=== PATIENT | female | born 1990 | race Caucasian/White ===

== ENCOUNTER 2022-02-23 10:46 | Day surgery (SDC) | payer BC ==
[2022-02-23] MEDS ORDERED: BUPIVACAINE 0.25% PF 10 ML VIAL ONE (11:01)
[2022-02-23] MEDS ORDERED: LIDOCAINE 1% 20 ML MDV ONE (11:02)
[2022-02-23] MEDS ORDERED: TRIAMCINOLONE ACETON 40 MG/ML VIAL ONE (11:02)
[2022-02-23] MEDS ORDERED: Ringers Lactate 1,000 ML IV ONE (11:11)
[2022-02-23] MEDS ORDERED: propofoL 200 MG/20 ML VIAL IV ONE (11:47)
[2022-02-23] MEDS ORDERED: LIDOCAINE 2% MPF 5 ML VIAL ONE (11:48)
[2022-02-23 14:15] VITALS: TEMP 97.6; O2SAT 100
[2022-02-23 14:17] VITALS: BP 107/61
--- NOTE | 2022-02-23 14:54 | RAD REPORT ---
EXAM DESCRIPTION: RAD - Fluoroscopy <1 Hour - 02/23/2022 2:42 pm CLINICAL HISTORY: Device placement sacroiliac injection FINDINGS: [place] placed into the sacroiliac joint for pain injection The examination was performed by Dr. Cornejo One fluoroscopic spot images obtained. Fluoroscopy time 0.2 minutes
== END 2022-02-23 13:30 | disposition home or self-care (01) ==
LOC: OR 10:46
PROVIDERS: ATTEND Pain Medicine Interventional Pain Medicine
PROC: B01BZZZ Fluoroscopy of Spinal Cord (ICD-10-PCS; 2022-02-23)
PROC: 3E0U33Z Introduction of Anti-inflammatory into Joints, Percutaneous Approach (ICD-10-PCS; principal; 2022-02-23 12:15)
DX: M46.1 Sacroiliitis, not elsewhere classified (principal); M76.30 Iliotibial band syndrome, unspecified leg; M70.61 Trochanteric bursitis, right hip; M54.16 Radiculopathy, lumbar region; M60.9 Myositis, unspecified; G89.4 Chronic pain syndrome
CPT/HCPCS: 81025; 76000; 27096; J2704; J3301; J2001; J7120; Q9967

== ENCOUNTER 2022-05-14 12:08 | Emergency (ER) | payer BC ==
--- OUTSIDE RECORDS SUMMARY | 2022-05-14 12:12 | XMS REPORT | Continuity of Care Document ---
:1990 Author Organization [facility] t Address [address] [place] [address] [address] [place] [address] Care Team Providers Name Role Phone Lori Galan Primary Care Physician DREW QUICK Attending Clinician Unavailable DEANDRE OROPEZA Attending Clinician Unavailable Lab, Ang - Db Attending Clinician Unavailable Lori Galan Attending Clinician LORI ALMARAZ Attending Clinician Unavailable Doctor Unassigned, [place] Attending Clinician Unavailable LAB90 Attending Clinician Unavailable Hayley Rivero Attending Clinician Unavailable CHANDAN RIVERS Attending Clinician Unavailable Physician, No Primary or Family Admitting Clinician Unavaila ble Payers Payer Name Policy Type Policy Number Effective Date Expiration Date Magdiel cardenas BC 2 [id number] 2022 00:00:00 Problems Condition Condition Condition Status Onset Resolution Last Treating Co mments Source Name Details Category Date Date Treatment Clinician Date Seasonal Seasonal Disease Active 2022- Kelse y allergic allergic 2-10 Seybol d rhinitis rhinitis 00:00: - due to due to 00 Externa pollen pollen l 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:00: - major major 00 Externa depressive depressive l disorder disorder without without prior prior episode episode Vitamin D Vitamin D Disease Active 2021-03 Amandeep jiang deficiency deficiency 2-16 Se ybold 00:00: - 00 Externa l Chronic Chronic Disease Active 2021-03 Indira bilateral bilateral 2-16 Seyb old low back low back 00:00: - pain pain 00 Externa without without l sciatica sciatica Prediabete Prediabete Disease Active 2021-03 Jake kahn s s 2-16 Seybold 00:00: - 00 Externa l Class 1 Class 1 Disease Active 2021-03 Indira obesity obesity 2-16 Seybold due to due to 00:00: - excess excess 00 Externa calories calories l without without serious serious comorbidit comorbidit y with y with body mass body mass index index (BMI) of (BMI) of 34.0 to 34.0 to 34.9 in 34.9 in adult adult PCOS PCOS Disease Active 2021-03 Indira (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 Se ybold 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:00: - syndrome) syndrome) 00 Exte rna l 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 Jake elsey disorder disorder 2-16 Seybol d with with 00:00: - depressed depressed 00 Exte rna mood mood l No known No known Disease Unive rs active active ity of problems problems [facility] Allergies, Adverse Reactions, Alerts Allergy Allergy Status Severity Reaction(s) Onset Inactive Treating Comm ents Source Name Type Date Date Clinician No Known DA Active [facility] Allergie 7-26 Clear s 00:00: Vasquez 00 [facility] No Known DA Active [facility] Allergie 7-26 Clear s 00:00: Vasquez 00 [facility] NO KNOWN Drug Active Univers ALLERGIE Class ity of S [facility] Family History Family Member Diagnosis Comments Start Date Stop Date Source Natural father Stroke [facility] Social History Social Habit Start Date Stop Date Quantity Comments Source History SDOH Indira Avalos ld - Alcohol Frequency Externa l History SDOH Indira Avalos ld - Alcohol Std Drinks [place]ose Hunter al History SDOH Indira Avalos ld - Alcohol Binge External History of tobacco Cigarette Smoker [facility] of use [facility] Exposure to 2022-03-08 2022-03-18 Not sure University SARS-CoV-2 (event) 00:00:00 12:55:00 [facility] Tobacco use and 2022-03-18 2022-03-18 Smokeless Universit y of exposure 00:00:00 00:00:00 tobacco non-user [facility] Alcohol Comment 2022-03-18 2022-03-18 social Universit y of 00:00:00 00:00:00 [facility] Education 2022-02-18 2022-02-18 18 Indira Gilliam - 00:00:00 00:00:00 External Alcohol intake 2020 2020 .57 /d [facility] Cigarettes smoked 2020-01-10 2020-01-[address] current (pack per 00:00:00 00:00:00 Hospita l day) - Reported Cigarette 2020-01-10 2020-01-10 [facility] pack-years 00:00:00 00:00:00 Hospital Sex Assigned At [birth year] Universit [facility] of 00:00:00 00:00:00 [facility] Smoking Status Start Date Stop Date Source Tobacco smoking [facility] consumption unknown [facility] Smokes tobacco daily 2022-02-18 00:00:00 Indira Gilliam - External Ex-smoker 2020-01-10 00:00:00 2020-01-10 [facility] 00:[facility]:00 Medications Ordered Filled Start Stop Current Ordering Indication Dosage Frequency Signature Comments Components Source Medication Medication Date Date Medication? Clinician (SIG) Name Name Cholecalcif Yes Indira cristiano 125 1-13 Seybold MCG (5000 15:05: - [place]) oral 53 Externa Tablet l Diclofenac 0 Yes 50mg Take 50 mg K elsey Sodium 50 1-13 by mouth 3 Seyb old MG oral 15:05: times - Tablet 53 daily Externa Delayed (with l Response meals) Cholecalcif 0 Yes Indira cristiano 125 1-13 Seybold MCG (5000 15:05: - [place]) oral 53 Externa Tablet l Diclofenac Yes 50mg Take 50 mg K elsey Sodium 50 1-13 by mouth 3 Seyb old MG oral 15:05: times - Tablet 53 daily Externa Delayed (with l Response meals) diclofenac 3-0 Yes 50mg Take 50 mg U nivers 50 mg EC 1-13 by mouth ity of tablet 13:20: in the [place] [address] morning Medical and 50 mg Branch at noon and 50 mg in the evening. Take with meals. diclofenac 2022-0 Yes 50mg Take 50 mg U nivers 50 mg EC 1-13 by mouth ity of tablet 13:20: in the [place] [address] morning Medical and 50 mg Branch at noon and 50 mg in the evening. Take with meals. diclofenac 2022-0 Yes 50mg Take 50 mg U nivers 50 mg EC 1-13 by mouth ity of tablet 13:20: in the [place] [address] morning Medical and 50 mg Branch at noon and 50 mg in the evening. Take with meals. diclofenac 2022-0 Yes 50mg Take 50 mg U nivers 50 mg EC 1-13 by mouth ity of tablet 13:20: in the [place] [address] morning Medical and 50 mg Branch at noon and 50 mg in the evening. Take with meals. Sertraline 0 Yes [id number] 25mg Take 1 K elsey HCl 25 MG 1-13 tablet (25 Seyb old oral Tablet 00:00: mg total) - 00 by mouth Externa daily l Sertraline 2022-0 Yes [id number] 25mg Take 1 K elsey HCl 25 MG 1-13 tablet (25 Seyb old oral Tablet 00:00: mg total) - 00 by mouth Externa daily l Cholecalcif 2021-03 Yes Indira cristiano 125 2-16 Seybold MCG (5000 15:09: - [place]) oral 29 Externa Tablet l metFORMIN 2019-03 Yes 500mg Q.5D Take 500 [facility] (GLUCOPHAGE 2-[address] ) 500 mg 15:38: mouth 2 Hospit a tablet 53 (two) l times a day with meals. thyroid, 2019-03 Yes 60mg QD Take 60 mg [facility] pork, -[address] (ARMOUR 15:38: daily. Hospita THYROID) 60 53 l mg tablet cholecalcif 2019-03 Yes Method i cristiano, 04-06 st vitamin D3, 15:38: Hospit a 125 mcg 53 l (5,000 unit) tablet norethindro 2019-03 Yes Method i ne-e.estrad 2- st ioL-iron 15:38: Hospita (JUNEL FE 53 l 03/25) 1 mg-20 mcg (21)/75 mg (7) per tablet progesteron Yes Method i e 11-24 st (PROMETRIUM 00:00: Hospit a ) 100 MG 00 l capsule Immunizations Ordered Immunization Filled Immunization Date Status Commen ts Source Name Name Influenza Virus 2022-02-18 Completed Indira Se ybold Vaccine, age 6 months 00:00:00 - E xternal and up Pneumococcal Vaccine, 2022-02-18 Completed Amandeep georgey Seybold Polysaccharide 00:00:00 - External Influenza Virus 2022-02-18 Completed Indira Se ybold Vaccine, age 6 months 00:00:00 - E xternal and up Pneumococcal Vaccine, 2022-02-18 Completed Amandeep georgey Seybold Polysaccharide 00:00:00 - External Influenza Virus 2022-02-18 Completed Indira George ybold Vaccine, age 6 months 00:00:00 - E xternal and up Pneumococcal Vaccine, 2022-02-18 Completed Amandeep sey Seybold Polysaccharide 00:00:00 - External Vital Signs Vital Name Observation Time Observation Value Comments Source Systolic blood 2022-04-15 20:59:00 102 mm[Hg] Indira Georgeybold - pressure External Diastolic blood 2022-04-15 20:59:00 70 mm[Hg] Jose Gilliam - pressure External Heart rate 2022-04-15 20:59:00 83 /min Indira farr - External Body temperature 2022-04-15 20:59:00 36.67 Cortney Emily lincoln Seybold - External Respiratory rate 2022-04-15 20:59:00 20 /min Emily lincoln Seybold - External Body height 2022-04-15 20:59:00 165.1 cm Indira farr - External Oxygen saturation in 2022-04-15 20:59:00 98 /min Indira Gilliam - Arterial blood by External Pulse oximetry Oxygen saturation in 2022-03-18 21:05:00 99 /min Indira Gilliam - Arterial blood by External Pulse oximetry Systolic blood 2022-03-18 21:05:00 110 mm[Hg] Indira Georgeybold - pressure External Diastolic blood 2022-03-18 21:05:00 73 mm[Hg] Jose rashid Seybold - pressure External Heart rate 2022-03-18 21:05:00 77 /min Indira Veloz eybold - External Body temperature 2022-03-18 21:05:00 36.56 Cortney Emily ey Seybold - External Respiratory rate 2022-03-18 21:05:00 14 /min Emily lincoln Seybold - External Body height 2022-03-18 21:05:00 165.1 cm Indira lincolnbold - External Body weight 2022-03-18 21:05:00 95.709 kg Indira Veloz eybold - External BMI 2022-03-18 21:05:00 35.11 kg/m2 Indira ilncolnbold - External Systolic blood 2022-03-18 19:17:00 123 mm[Hg] Univer sity of pressure [facility] Diastolic blood 2022-03-18 19:17:00 81 mm[Hg] Unive rsity of pressure [facility] Heart rate 2022-03-18 19:17:00 73 /min [facility] Body temperature 2022-03-18 19:17:00 37.39 Cortney Univ ers[facility] of [facility] Body height 2022-03-18 19:17:00 165.1 cm [facility] Body weight 2022-03-18 19:17:00 92.987 kg [facility] BMI 2022-03-18 19:17:00 34.11 kg/m2 [facility] Oxygen saturation in 2022-03-18 19:17:00 100 /min [facility] Arterial blood by [facility] Pulse oximetry Branch Systolic blood 2022-02-18 20:57:00 108 mm[Hg] Indira Georgeybold - pressure External Diastolic blood 2022-02-18 20:57:00 70 mm[Hg] Jose rashid Seybold - pressure External Heart rate 2022-02-18 20:57:00 73 /min Indira Veloz eybold - External Body temperature 2022-02-18 20:57:00 36.67 Cortney Emily lincoln Seybold - External Respiratory rate 2022-02-18 20:57:00 14 /min Emily Gilliam - External Body height 2022-02-18 20:57:00 165.1 cm Indira Veloz eybogiovanni - External Body weight 2022-02-18 20:57:00 93.895 kg Indira lincolnbold - External BMI 2022-02-18 20:57:00 34.45 kg/m2 Indira farr - External Procedures Procedure Date / Time Performing Clinician Source Performed FREE T4 2022-03-18 20:12:00 Lori Almaraz [facility] THYROID STIMULATING 2022-03-18 20:12:00 Lori Almaraz [facility] FREE T3 2022-03-18 20:12:00 Lori Almaraz [facility] ASSIGNMENT OF BENEFITS 2022-03-18 18:56:14 Doctor Unassigned, No [facility] Plan of Care Planned Activity Planned Date Details Comments Source Future Scheduled 2022-02-20 COVID-19 VACCINE [facility] Test 13:59:16 (#1) [code = COVID-19 VACCINE (#1)] Future Scheduled 2022-02-20 Hepatitis C [facility] 13:59:16 screening (procedure) [code = 561934135] Future Scheduled 2022-02-20 [facility] Test 13:59:16 malignant neoplasm of cervix (procedure) [code = 311215135] Future Scheduled 2022-02-20 [facility]ENZA [facility]ACCINE [facility] Test 13:59:16 [code = INFLUENZA VACCINE] Encounters Start End Encounter Admission Attending Care Care Encounter Source Date/Time Date/Time Type Type Clinicians Facility Department ID 2022-07-15 2022-07-15 Outpatient INDIRA QUICK [id number] Indira 15:30:00 15:30:00 DREW Seybol d 2022-05-27 2022-05-27 Outpatient DEANDRE OROPEZA [id number] Indira 08:30:00 08:30:00 Seybol d 2022-04-15 2022-04-15 Outpatient INDIRA QUICK [id number] Indira 15:15:00 15:15:00 DREW Seybol d 2022-03-18 2022-03-18 Mechanic Chief Lab, Ang - Db [facility] 1.2.840.1 [id number] Univers 14:15:00 15:19:45 Visit Rufina Lori [facility] 350.1.13.10 ity of [place] 4.2.7.2.686 George as BRITTNEY?BLEA [id number] Ak massiel FRAZIER [address] MEDICAL OFFICE [facility] 2022-03-18 2022-03-18 Outpatient PREINDIRA ALLEN [id number] Indira 15:15:00 15:15:00 DREW Seybol d 2022-03-18 2022-03-18 Outpatient R RUFINA [facility] [id number] Univers 13:30:00 14:07:07 LORI ity [facility] 2022-03-18 2022-03-18 Office Rufina, [facility] [id number] Univers 13:30:00 14:07:07 Visit Lori Abdirashid HEALTH 350.1.13.10 i ty of [place] 4.2.7.2.686 George as BRITTNEY?BLEA [id number] Ak massiel [address] OFFICE [facility] 2022-03-18 2022-03-18 Orders Doctor AUBRIE 1.2.840.114 [id number] Univers 00:00:00 00:00:00 Only Unassigned, MARIKA 350.1.13.10 ity of [place] [facility] 4.2.7.2.686 George as [id number] [address] 2022-02-23 2022-02-23 Outpatient PREZAINDIRA Veloz [id number] Indira 00:00:00 00:00:00 DREW Seybol d 2022-02-18 2022-02-18 Outpatient LAB90 INDIRA MEDINA [id number] Indira 16:00:00 16:00:00 Seybol d 2022-02-18 2022-02-18 Outpatient PREINDIRA ALLEN [id number] Indira 15:15:00 15:15:00 DREW Seybol d 2022-02-18 2022-02-18 Outpatient INDIRA QUICK [id number] Indira 15:15:00 15:15:00 DREW lee 2020-12-04 2020-12-04 Outpatient PRIV PRIV [id number] [facility] 00:00:00 00:00:00 [id number] Medica l 2020-09-29 2020-09-29 Outpatient Josefa, HCACL LABO [id number] [facility] 00:25:00 00:25:00 Hayley 22 [facility] 2020-09-28 2020-09-28 Emergency EM Josefa, HCAMN LOGAN [id number] [facility] 01:22:00 04:48:00 Hayley 53 [facility] 2020 2020 Outpatient RIVERS, [facility] [id number] [place] 00:00:00 00:00:00 CHANDAN [address] 2020-01-16 2020-01-16 Outpatient RIVERS, [facility] [id number] [place] 00:00:00 00:00:00 CHANDAN [address] 2020-01-10 2020-01-10 Outpatient RIVERS, [facility] [id number] [place] 00:00:00 00:00:00 CHANDAN [address] 2020-01-10 2020-01-10 Outpatient RIVERS, [facility] [id number] [place] 00:00:00 00:00:00 CHANDAN [address] Results Test Description Test Time Test Comments Results Result Comments Source THYROID STIMULATING HORMONE 2022-03-18 23:23:56 Test Item Value Reference Range Interpretation Comme nts TSH (test code = 9752000455) See_Comment [Automated message] The system which generated this result transmitted ref erence range: 0.45 - 4.70 mIU/L. T he reference range was not used to interpret this result as stefani l/abnormal. Lab Interpretation (test code = Normal 16715-2) [facility] [id number] 23:10:55 Test Item Value Reference Range Interpretation Comments FREE T4 (test code = See_Comment [Autom ated message] [id number]) The system ic h generated this result transmitted ref erence range: 0.78 - 2 .20 ng/dL:. The ref erence range was not u sed to interpret this result as normal/abnor mal. Lab Interpretation (test Normal code = 21111-7) [facility] [id number] 23:10:13 Test Item Value Reference Range Interpretation Comments FREE T3 (test code = 3098902412) 3.14 pg/mL 2.77-5.27 Lab Interpretation (test code = Normal 84827-2) [facility]- CT ABD PELVIS [id number] 03:39:00 [facility] : 1990 Sex: F FAX: Hayley Miles MD [place]: St: REG Name: ANGIE FERRARI [facility] : 1990 Age/S: 30/F [address] [facility] Unit: [id number] Loc: [address] Phys: [place] [id number] Acct: [id number] Dis Date: Status: REG ER PHONE #: [phone] Exam Date: 09/28/2020253 FAX #: [phone] Reason: ABD PAIN EXAMS: CPT CODE: [id number] CT ABD PELVIS W/CONT 61257 EXAM: - CT ABD PELVIS W/CONT HISTORY: Abdominal pain. TECHNIQUE: Axial tomograms through the abdomen and pelvis were obtained after intravenous contrast. Coronal and sagittal reformatted images are provided. This exam was performed according to our departmental dose-optimization program, which includes automated exposure control, adjustment of the mA and/or kV according to patient size and/or use of iterative reconstruction technique. COMPARISON: None available time of interpretation. FINDINGS: The visualized lung bases are clear. There is a 3 cm enhancing lesion in left lobe of the liver. This could represent a hemangioma. The spleen, pancreas, adrenal glands and kidneys demonstrate no significant abnormalities. The appendix is minimally prominent in size measuring 8 mm in diameter. There is no evidence of acute inflammation. This could be a normal variant. The bowel is not distended. There is minimal fluid throughout the small bowel. There is no adenopathy or free fluid. There is no acute osseous abnormality. IMPRESSION: A 3cm enhancing lesion in left lobe of the liver. This could represent a hemangioma. Limited exam. Nonemergent evaluation with hepatic protocol is recommended for further characterization. The appendix is minimally prominent in size. PAGE 1 Signed Report (CONTINUED) FAX: Hayley Miles MD [place]: St: REG -- Name: ANGIE FERRARI [facility] : 1990 Age/S: 30/F [address] [facility] Unit: [id number] Loc: [address] Phys: [place] [address] Acct: [id number] Dis Date: Status: REG ER PHONE#: [phone] Exam Date: 09/28/2020 0254 FAX #: [phone] Reason: ABD PAIN EXAMS: CPT CODE: [id number] CT ABD PELVIS W/CONT 41601 (Continued) This could be a normal variant. No evidence of acute inflammation. Clinical correlation is suggested. Minimal fluid-filled small bowel, a nonspecific finding. Mild enteritis is a possibility. at 0339 Reported and signed by: Aram Herrera M.D. CC: Hayley Rivero MD Technologist: CHANG GALEAS Trnscrd Dt/Tm: 09/28/2020 (0339) [email or web address] Orig Print D/T: S: 09/28/2020 (8202 PAGE 2 Signed Report COMPREHENSIVE METABOLIC [id number] 02:24:00 Test Item Value Reference Range Interpretation Comments SODIUM (test code = NA) 141 mmol/l 134.0-147.0 N POTASSIUM (test code = K) 3.5 mmol/L 3.6-5.2 L CHLORIDE (test code = CL) 103 mmol/l 98.0-107.0 N CARBON DIOXIDE (test code = CO2) 26.0 mmol/l 21.0-33.0 N ANION GAP (test code = GAP) 15.5 0-20 N GLUCOSE (test code = GLU) 102 mg/dl 70.0-110.0 N BLOOD UREA NITROGEN (test code = 7 mg/dl 7.0-18.0 N BUN) CREATININE (test code = CREAT) 0.85 mg/dL 0.60-1.30 N GFR NON BLACK (test code = 84 mL/min 110-120 L GFRNONBLACK) GFR BLACK (test code = GFRBLACK) 101 mL/min 133-145 L TOTAL PROTEIN (test code = PROT) 7.9 GM/DL 6.0-8.1 N ALBUMIN (test code = ALB) 3.6 gm/dL 3.2-4.7 N CALCIUM (test code = CA) 8.0 mg/dl 8.0-10.5 N BILIRUBIN TOTAL (test code = 0.3 mg/dl 0.0-1.0 N BILT) SGOT/AST (test code = AST) 22 Units/L 15-37 N SGPT/ALT (test code = ALT) 37 Units/L 12.0-78.0 N ALKALINE PHOSPHATASE TOTAL (test 105 Units/L 50.0-136.0 N code = ALKP) [id number] 02:24:00 Test Item Value Reference Range Interpretation Comments LIPASE (test code = LIP) 100 Units/L 65.0-230.0 N B-TYPE NATRIURETIC [id number] 02:24:00 Test Item Value Reference Range Interpretation Comments B-TYPE NATRIURETIC PEPTIDE (test 29.6 PG/ML 5-100 N code = BNP) CARDIAC ENZYMES [id number] 02:24:00 Test Item Value Reference Range Interpretation Comments CREATINE KINASE (CK) 142 Units/L 21-215 N (test code = CK) TROPONIN-I (test code <0.02 NG/ML 0.00-0.06 N REFERE NCE RANGE = TROPI) TROPONIN I HEAL THY INDIVIDUALS: <0 .06 ng/mL R/O ISCHE BI: 0.07 - 0.60 ng/ mL CUT-OFF RANGE F OR AMI: 0.60 - 1.5 ng/mL COMPREHENSIVE METABOLIC [id number] 02:21:00 Test Item Value Reference Range Interpretation Comments SODIUM (test code = NA) mmol/l 134.0-147.0 POTASSIUM (test code = K) mmol/L 3.6-5.2 CHLORIDE (test code = CL) mmol/l 98.0-107.0 CARBON DIOXIDE (test code = CO2) mmol/l 21.0-33.0 ANION GAP (test code = GAP) 0-20 GLUCOSE (test code = GLU) mg/dl 70.0-110.0 BLOOD UREA NITROGEN (test code = mg/dl 7.0-18.0 BUN) CREATININE (test code = CREAT) mg/dL 0.60-1.30 GFR NON BLACK (test code = mL/min 110-120 GFRNONBLACK) GFR BLACK (test code = GFRBLACK) mL/min 133-145 TOTAL PROTEIN (test code = PROT) gm/dL 6.4-8.2 ALBUMIN (test code = ALB) gm/dl 3.2-4.7 CALCIUM (test code = CA) mg/dl 8.0-10.5 BILIRUBIN TOTAL (test code = BILT) mg/dl 0.0-1.0 SGOT/AST (test code = AST) Units/L 15-37 SGPT/ALT (test code = ALT) Units/L 12.0-78.0 ALKALINE PHOSPHATASE TOTAL (test Units/L 50.0-136.0 code = ALKP) [id number] 02:21:00 Test Item Value Reference Range Interpretation Comments LIPASE (test code = LIP) Units/L 65.0-230.0 B-TYPE NATRIURETIC [id number] 02:21:00 Test Item Value Reference Range Interpretation Comments B-TYPE NATRIURETIC PEPTIDE (test 29.6 PG/ML 5-100 N code = BNP) CARDIAC ENZYMES [id number] 02:21:00 Test Item Value Reference Range Interpretation Comments CREATINE KINASE (CK) (test code = Units/L 21-215 CK) TROPONIN-I (test code = TROPI) NG/ML 0.00-0.06 DRUGS OF ABUSE SCREEN [id number] 02:19:00 Test Item Value Reference Interpretation Comments Range URN COCAINE (test POSITIVE NEGATIVE A UNCONFIRME D INITIAL code = COCAURN) SCREENING ON LY; SUGGEST ADDITIONALCONFI RMATORY TESTING.Cocaine cut-off concentration: 300 ng/mL URN CANNABINOIDS NEGATIVE NEGATIVE Cannabinoid s cut-off (test code = concentration: 50 ng/mL CANNABURN) URN AMPHETAMINE POSITIVE NEGATIVE A UNCONFIRMED INITIAL (test code = SCREENING ONLY; SUGGEST AMPHETURN) ADDITIONALCONFI RMATORY TESTING.Ampheta mine cut-off concentration: 1000 ng/mL URN BARBITURATE NEGATIVE NEGATIVE Barbiturate cut-off (test code = concentration: 200 ng/mL BARBITURN) URN BENZODIAZEPINE NEGATIVE NEGATIVE Benzodiaz epine cut-off (test code = concentration: 200 ng/mL BENZOURN) URN OPIATES (test NEGATIVE NEGATIVE Opiates cu t-off code = OPIATURN) concentrati on: 2000 ng/mL URN PHENCYCLIDINE NEGATIVE NEGATIVE Phencyclid ine(PCP) cut-off (PCP) (test code = concentra tion: 25 ng/ml PHENCURN) URN METHADONE (test NEGATIVE NEGATIVE Methadon e cut-off code = METHAURN) concentrati on: 300 ng/mL URINALYSIS [id number] 02:11:00 Test Item Value Reference Range Interpretation Comments UA COLOR (test code = YELLOW COLU) UA APPEARANCE (test code CLDY = APPU) UA GLUCOSE DIPSTICK (test NORMAL mg/dl NORMAL code = DGLUU) UA BILIRUBIN DIPSTICK NEGATIVE mg/dL NEGATIVE (test code = BILU) UA KETONE DIPSTICK (test NEGATIVE mg/dl NEGATIVE code = KETU) UA SPECIFIC GRAVITY (test 1.025 1.000-1.030 code = SGU) UA BLOOD DIPSTICK (test 25 Tom/micL Tom/micL NEGATIVE A code = UMESH) UA PH DIPSTICK (test code 5.0 5.0-9.0 = BARBARA) UA PROTEIN DIPSTICK (test 15 mg/dl mg/dl NEGATIVE A code = PROU) UA UROBILINIOGEN DIPSTICK 1.0 mg/dl mg/dl NORMAL A (test code = URO) UA NITRITE DIPSTICK (test NEGATIVE NEGATIVE code = BRENDAN) UA LEUKOCYTE ESTERASE 500 Tom/micL NEGATIVE A DIPSTICK (test code = Tom/micL LEUU) UA WBC (test code = WBCU) 20-25 WBC/HPF NONE A UA RBC (test code = RBCU) 3-5 RBC/HPF 0-3 UA EPITHELIAL CELLS (test 0-3 EPI/HPF 0-3 code = EPIU) UA BACTERIA (test code = FEW NONE BACU) UA MUCUS (test code = 3+ MUCU) UR HCG [id number] 02:11:00 Test Item Value Reference Range Interpretation Comments UR HCG QUAL (test code = HCGQLU) NEGATIVE NEGATIVE URINALYSIS [id number] 02:04:00 Test Item Value Reference Range Interpretation Comments UA COLOR (test code = YELLOW COLU) UA APPEARANCE (test code CLDY = APPU) UA GLUCOSE DIPSTICK (test NORMAL mg/dl NORMAL code = DGLUU) UA BILIRUBIN DIPSTICK NEGATIVE mg/dL NEGATIVE (test code = BILU) UA KETONE DIPSTICK (test NEGATIVE mg/dl NEGATIVE code = KETU) UA SPECIFIC GRAVITY (test 1.025 1.000-1.030 code = SGU) UA BLOOD DIPSTICK (test 25 Tom/micL Tom/micL NEGATIVE A code = UMESH) UA PH DIPSTICK (test code 5.0 5.0-9.0 = BARBARA) UA PROTEIN DIPSTICK (test 15 mg/dl mg/dl NEGATIVE A code = PROU) UA UROBILINIOGEN DIPSTICK 1.0 mg/dl mg/dl NORMAL A (test code = URO) UA NITRITE DIPSTICK (test NEGATIVE NEGATIVE code = BRENDAN) UA LEUKOCYTE ESTERASE 500 Tom/micL NEGATIVE A DIPSTICK (test code = Tom/micL LEUU) UA WBC (test code = WBCU) WBC/HPF NONE UA RBC (test code = RBCU) RBC/HPF 0-3 UA EPITHELIAL CELLS (test EPI/HPF 0-3 code = EPIU) UA BACTERIA (test code = NONE BACU) UR HCG [id number] 02:04:00 Test Item Value Reference Range Interpretation Comments UR HCG QUAL (test code = HCGQLU) NEGATIVE NEGATIVE CBC W/AUTO [id number] 02:03:00 Test Item Value Reference Range Interpretation Comments WHITE BLOOD CELL (test code = 11.5 K/mm3 4.5-11.0 H WBC) RED BLOOD CELL (test code = 4.79 M/mm3 3.80-5.20 N RBC) HEMOGLOBIN (test code = HGB) 14.4 gm/dL 12.0-16.0 N HEMATOCRIT (test code = HCT) 43.0 % 36.0-48.0 N MEAN CELL VOLUME (test code = 89.8 UM3 82.0-99.0 N MCV) MEAN CELL HGB (test code = MCH) 30.1 UUG 25.5-32.5 N MEAN CELL HGB CONCETRATION 33.5 gm/dL 29.0-35.5 N (test code = MCHC) RED CELL DISTRIBUTION WIDTH 12.6 % 11.5-15.0 N (test code = RDW) RED CELL DISTRIBUTION WIDTH SD 41.2 fL 34.8-50.2 N (test code = RDW-SD) PLATELET COUNT (test code = 293 K/mm3 150-400 N PLT) MEAN PLATELET VOLUME (test code 10.1 fl 7.4-10.4 N = MPV) NEUTROPHIL % (test code = NT%) 41.7 % 49.0-76.0 L IMMATURE GRANULOCYTE % (test 0.4 % 0.0-0.4 N code = IG%) LYMPHOCYTE % (test code = LY%) 43.5 % 23.0-38.0 H MONOCYTE % (test code = MO%) 6.8 % 1.0-10.0 N EOSINOPHIL % (test code = EO%) 7.0 % 1.0-5.0 H BASOPHIL % (test code = BA%) 0.6 % 0.0-1.0 N NUCLEATED RBC % (test code = 0.0 % 0.0-0.1 N NRBC%) NEUTROPHIL # (test code = NT#) 4.8 K/mm3 2.4-6.3 N IMMATURE GRANULOCYTE # (test 0.05 x10 3/uL 0.00-0.07 N code = IG#) LYMPHOCYTE # (test code = LY#) 5.0 K/mm3 1.2-4.0 H MONOCYTE # (test code = MO#) 0.8 K/mm3 0.0-0.6 H EOSINOPHIL # (test code = EO#) 0.8 K/MM3 0.0-0.7 H BASOPHIL # (test code = BA#) 0.1 K/mm3 0.0-0.2 N NUCLEATED RBC # (test code = 0.00 X10 3uL 0.00-0.01 N NRBC#) URINALYSIS [id number] 02:02:00 Test Item Value Reference Range Interpretation Comments UA COLOR (test code = YELLOW COLU) UA APPEARANCE (test code CLDY = APPU) UA GLUCOSE DIPSTICK (test NORMAL mg/dl NORMAL code = DGLUU) UA BILIRUBIN DIPSTICK NEGATIVE mg/dL NEGATIVE (test code = BILU) UA KETONE DIPSTICK (test NEGATIVE mg/dl NEGATIVE code = KETU) UA SPECIFIC GRAVITY (test 1.025 1.000-1.030 code = SGU) UA BLOOD DIPSTICK (test 25 Tom/micL Tom/micL NEGATIVE A code = UMESH) UA PH DIPSTICK (test code 5.0 5.0-9.0 = BARBARA) UA PROTEIN DIPSTICK (test 15 mg/dl mg/dl NEGATIVE A code = PROU) UA UROBILINIOGEN DIPSTICK 1.0 mg/dl mg/dl NORMAL A (test code = URO) UA NITRITE DIPSTICK (test NEGATIVE NEGATIVE code = BRENDAN) UA LEUKOCYTE ESTERASE 500 Tom/micL NEGATIVE A DIPSTICK (test code = Tom/micL LEUU) UA WBC (test code = WBCU) WBC/HPF NONE UA RBC (test code = RBCU) RBC/HPF 0-3 UA EPITHELIAL CELLS (test EPI/HPF 0-3 code = EPIU) UA BACTERIA (test code = NONE BACU) UR HCG [id number] 02:02:00 Test Item Value Reference Range Interpretation Comments UR HCG QUAL (test code = HCGQLU) NEGATIVE - XR CHEST 1 [id number] 01:58:00 [facility] 1990 Sex: F FAX: Hayley Miles MD [place]: St: PRE Name: ANGIE FERRARI [facility] : 1990 Age/S: 30/F [address] [facility] Unit #: [id number] Loc: [address] Phys: [place] [id number] Acct: [id number] Dis Date: Status: PRE ER PHONE #: [phone] Exam Date: 09/28/2020154 FAX #: [phone] Reason: CP EXAMS: CPT CODE: [id number] XR CHEST 1 V 06208 Examination: Chest 1 view Location code: S17 Comparison: None Discussion: Clinical history is remarkable for chest pain. Cardiac silhouette is normal in size. No consolidation, effusion, or pneumothorax is appreciated. Osseous structures are unremarkable. Impression: 1. No acute finding. at 0158 Reported and signed by: Sean Lazo M.D. CC: Hayley Rivero MD Technologist: OANH TODD Trnscrd Date/Time/By: 09/28/2020 (0158) : By: [email or web address] PAGE 1 Signed Report FAX: Hayley Miles MD [place]: St: PRE Name: ANGIE FERRARI [facility] : 1990 Age/S: 30/F [address] [facility] Unit #: [id number] Loc: [address] [place] [address] Phys: [place] [id number] Acct: [id number] Dis Date: Status: PRE ER PHONE #: [phone] Exam Date: 09/28/2020154 FAX #: [phone] Reason: CP EXAMS: CPT CODE: [id number] XR CHEST 1 V 18677 (Continued) Orig Print D/T: S: 09/28/2020(020) PAGE 2 Signed Report
[2022-05-14 12:50] LABS: Urine Blood 3+ (Negative); Urine Glucose Negative (Negative); Urine Protein 1+ (Negative); Urine Specific Gravity >=1.030 (1.005-1.030); Urine pH 5.5 (5.0-7.0)
[2022-05-14 12:54] LABS: Urine Specific Gravity/Preg >1.030 (1.005-1.030)
--- NOTE | 2022-05-14 13:12 | RAD REPORT ---
EXAM DESCRIPTION: CT - CTHCSPWOC - 05/14/2022 1:04 pm CLINICAL HISTORY: Trauma, head and neck injury. head injury, loc COMPARISON: No comparisons TECHNIQUE: Axial 5 mm thick images of the head were obtained. Axial 2 mm thick images of the cervical spine were obtained with sagittal and coronal reconstruction images generated and reviewed. All CT scans are performed using dose optimization technique as appropriate and may include automated exposure control or mA/KV adjustment according to patient size. FINDINGS: CT HEAD WITHOUT CONTRAST: No acute hemorrhage, hydrocephalus or extra-axial collection is identified.No areas of brain edema or midline shift. The paranasal sinuses and mastoids are clear.The calvarium is intact. CT CERVICAL SPINE WITHOUT CONTRAST: No fracture or subluxation.No prevertebral soft tissues swelling is identified. IMPRESSION: No acute intracranial or cervical spine findings.
[2022-05-14 14:36] VITALS: TEMP 97.4
[2022-05-14 14:38] VITALS: BP 134/88; O2SAT 99
--- NOTE | 2022-05-27 16:15 | EDPHYS ---
Physician Documentation [facility] Name: Shanell Sanford Age: 32 yrs Sex: Female : 1990 Arrival Date: 05/14/2022 Time: 12:12 Bed 8 Private MD: Ken Zuleta ED Physician Pedro Farrell HPI: 05/14 13:13 This 32 yrs old Female presents to ER via Ambulatory with complaints of Head Injury jmm With LOC-Adult. 13:13 The patient or guardian reports injury, pain. Onset: The symptoms/episode jmm began/occurred acutely, yesterday. Associated signs and symptoms: Loss of consciousness: This patient experience a loss of consciousness, Pertinent positives: nausea. Is a 32-year-old female the presents emerged part with complaints of headache, neck pain following a fall which occurred while playing softball yesterday. Patient states that she collided with another player hitting her head against the ground. States that she lost consciousness. States she has had ongoing neck pain and nausea since.. Historical: - Allergies: 12:16 No Known Allergies; mb9 - Home Meds: 12:16 sertraline oral [Active]; mb9 - PMHx: 12:16 Arthritis; mb9 - PSHx: 12:16 Tonsillectomy; mb9 - Immunization history:: Adult Immunizations up to date. - Social history:: Smoking status: Patient reports the use of cigarette tobacco products, smokes one-half pack cigarettes per day. ROS: 13:13 Constitutional: Negative for fever, chills, and weight loss, Cardiovascular: Negative jmm for chest pain, palpitations, and edema, Respiratory: Negative for shortness of breath, cough, wheezing, and pleuritic chest pain. 13:13 Neck: Positive for pain with movement. 13:13 Abdomen/GI: Positive for nausea. 13:13 Neuro: Positive for headache. 13:13 All other systems are negative. Exam: 13:13 Constitutional: This is a well developed, well nourished patient who is awake, alert, jmm and in no acute distress. 13:13 ENT: Moist Mucus Membranes 13:13 Chest/axilla: Normal chest wall appearance and motion. Cardiovascular: Regular rate and rhythm. No edema appreciated Respiratory: Normal respirations, no respiratory distress appreciated Abdomen/GI: Non distended Back: Normal ROM Skin: General appearance color normal MS/ Extremity: Moves all extremities, no obvious deformities appreciated, no edema noted to the lower extremities Neuro: Awake and alert Psych: Behavior is normal, Mood is normal, Patient is cooperative and pleasant 13:13 Head/face: Noted is hematoma, that is moderate, of the right side of the back of head. 13:13 Neck: C-spine: vertebral tenderness, that is mild, diffusely. Vital Signs: 12:17 BP 140 / 107; Pulse 69; Resp 18; Temp 97.4; Pulse Ox 98% ; Weight 93.89 kg; Height 5 mb9 ft. 5 in. ; Pain 0/10; 13:44 BP 134 / 88; Pulse 74; Resp 16; Pulse Ox 99% ; ko1 12:17 Body Mass Index 34.45 (93.89 kg, 165.1 cm) mb9 12:17 Pain Scale: Adult mb9 MDM: 12:27 Patient medically screened. [facility] 13:15 Differential diagnosis: Contusion of Hematoma on Intracranial bleed- Concussion [facility] cerebral contusion. Data reviewed: vital signs, nurses notes, radiologic studies, CT scan. I considered the following discharge prescriptions or medication management in the emergency department Medications were administered in the Emergency Department. See MAR. Historians other than the Patient: Mother. Counseling: I had a detailed discussion with the patient and/or guardian regarding: the historical points, exam findings, and any diagnostic results supporting the discharge/admit diagnosis, lab results, radiology results, the need for outpatient follow up, to return to the emergency department if symptoms worsen or persist or if there are any questions or concerns that arise at home. 05/14 12:50 Order name: Urine Dipstick-Ancillary; Complete Time: 12:52 EDWI 05/14 12:51 Order name: Urine --Ancillary (enter results); Complete Time: 12:54 kj1 05/14 12:28 Order name: CT Head C Spine; Complete Time: 13:13 [facility] 05/14 12:28 Order name: Urine Test (obtain specimen); Complete Time: 12:45 [facility] Administered Medications: 12:45 Drug: Acetaminophen PO 650 mg Route: PO; ko1 12:45 Drug: Ondansetron PO 4 mg Route: PO; ko1 Disposition: 18:33 Co-signature as Attending Physician, Pedro Farrell MD I reviewed the patient's care rt provided by the Advanced Practice Provider and agree with the diagnosis and treatment plan. Disposition Summary: 05/14/22 13:16 Discharge Ordered Location: Home jm Condition: Stable jmm Diagnosis - Unspecified injury of head, initial encounter jmm - Strain of muscle, fascia and tendon at neck level jmm Followup: jmm - With: Private Physician - When: 2 - 3 days - Reason: Recheck today's complaints, Continuance of care, Re-evaluation by your physician Discharge Instructions: - Discharge Summary Sheet jmm - Head Injury, Adult jmm - Post-Concussion Syndrome jmm - Cervical Strain and Sprain Rehab-SportsMed jmm Forms: - Medication Reconciliation Form jm - Thank You Letter jmm - Antibiotic Education jmm - Prescription Opioid Use [facility] Prescriptions: - Diclofenac Sodium 75 mg Oral Tablet Sustained Release - take 1 tablet by ORAL route 2 times per day; 30 tablet; Refills: 0, Product [facility] Selection Permitted - orphenadrine citrate 100 mg Oral Tablet Sustained Release - take 1 tablet by ORAL route 2 times per day As needed; 20 tablet; Refills: 0, jm Product Selection Permitted Signatures: Dispatcher [employer] EDMS Oliver Worthington PA PA jmm Regina Steel, RN RN ko1 Clari Darden RN RN mb9 Pedro Farrell MD MD rt Corrections: (The following items were deleted from the chart) 12:57 12:50 Head Brain Wo Cont ordered. EDMS EDMS
--- NOTE | 2022-05-27 16:15 | ER ---
Nurse's Notes [facility] Name: Shanell Sanford Age: 32 yrs Sex: Female : 1990 Arrival Date: 05/14/2022 Time: 12:12 Bed 8 Private MD: Ken Zuleta Diagnosis: Unspecified injury of head, initial encounter;Strain of muscle, fascia and tendon at neck level Presentation: 05/14 12:14 Chief complaint: Patient states: "I was playing softball last night and collided with mb9 someone making me fall and hit the back of my head. People around me said I lost consciousness, I feek dizzy and my head and neck hurt". 12:14 Method Of Arrival: Ambulatory mb9 12:14 Acuity: NILAY 3 mb9 12:17 Coronavirus screen: Vaccine status: Patient reports receiving the 2nd dose of the covid mb9 vaccine. Ebola Screen: No symptoms or risks identified at this time. Initial Sepsis Screen: Does the patient meet any 2 criteria? No. Patient's initial sepsis screen is negative. Does the patient have a suspected source of infection? No. Patient's initial sepsis screen is negative. Risk Assessment: Do you want to hurt yourself or someone else? Patient reports no desire to harm self or others. Onset of symptoms was May 13, 2022. Historical: - Allergies: 12:16 No Known Allergies; mb9 - Home Meds: 12:16 sertraline oral [Active]; mb9 - PMHx: 12:16 Arthritis; mb9 - PSHx: 12:16 Tonsillectomy; mb9 - Immunization history:: Adult Immunizations up to date. - Social history:: Smoking status: Patient reports the use of cigarette tobacco products, smokes one-half pack cigarettes per day. Screenin:44 [facility] ED Fall Risk Assessment (Adult) History of falling in the last 3 months, ko1 including since admission No falls in past 3 months (0 pts) Confusion or Disorientation No (0 pts) Intoxicated or Sedated No (0 pts) Impaired Gait No (0 pts) Mobility Assist Device Used No (0 pt) Altered Elimination No (0 pt) Score/Fall Risk Level 0 - 2 = Low Risk Oriented to surroundings, Maintained a safe environment, Educated pt \\T\\ family on fall prevention, incl call for assistance when getting out of bed, Assessed \\T\\ reinforced patient's understanding of fall precautions, Provided non-skid footwear, Hourly rounding (assess needs \\T\\ fall precautionary measures) done, Used ambulatory aids as needed (educated on \\T\\ assisted with), Used gait belt as appropriate. Abuse screen: Denies threats or abuse. Denies injuries from another. Nutritional screening: No deficits noted. Tuberculosis screening: No symptoms or risk factors identified. Assessment: 13:44 General: Appears in no apparent distress. comfortable, Behavior is calm, cooperative, ko1 appropriate for age. Pain: Complains of pain in right side of the back of head. Neuro: No deficits noted. Cardiovascular: No deficits noted. Respiratory: No deficits noted. GI: No deficits noted. : No deficits noted. EENT: No deficits noted. Derm: No deficits noted. Musculoskeletal: No deficits noted. Vital Signs: 12:17 BP 140 / 107; Pulse 69; Resp 18; Temp 97.4; Pulse Ox 98% ; Weight 93.89 kg; Height 5 mb9 ft. 5 in. ; Pain 0/10; 13:44 BP 134 / 88; Pulse 74; Resp 16; Pulse Ox 99% ; ko1 12:17 Body Mass Index 34.45 (93.89 kg, 165.1 cm) mb9 12:17 Pain Scale: Adult mb9 ED Course: 12:12 Patient arrived in ED. mr 12:12 Ken Zuleta DO is Private Physician. mr 12:15 Oliver Worthington PA is PHCP. [facility] 12:15 Pedro Farrell MD is Attending Physician. [facility] 12:16 Triage completed. mb9 12:17 Arm band placed on. mb9 12:20 Regina Steel, TELMA is Primary Nurse. ko1 13:06 CT Head C Spine In Process Unspecified. EDMS 13:44 Patient has correct armband on for positive identification. Bed in low position. Call ko1 light in reach. Side rails up X2. Adult w/ patient. Pulse ox on. NIBP on. 13:44 No provider procedures requiring assistance completed. Patient did not have IV access ko1 during this emergency room visit. Administered Medications: 12:45 Drug: Acetaminophen PO 650 mg Route: PO; ko1 12:45 Drug: Ondansetron PO 4 mg Route: PO; ko1 Medication: 13:44 VIS not applicable for this client. ko1 Outcome: 13:16 Discharge ordered by . basim 13:44 Discharged to home ambulatory, with family. ko1 13:44 Condition: good 13:44 Discharge instructions given to patient, family, Instructed on discharge instructions, follow up and referral plans. medication usage, Demonstrated understanding of instructions, follow-up care, medications, Prescriptions given X 2. 13:46 Patient left the ED. ko1 Signatures: Dispatcher [employer] EDMS Oliver Worthington PA PA jmm Rivera, Mary mr Regina Steel RN RN ko1 Clari Darden RN RN mb9 Corrections: (The following items were deleted from the chart) 12:18 12:14 Acuity: NILAY 3 [id number] mb9
== END 2022-05-14 13:46 | disposition home or self-care (01) ==
LOC: ER 12:08
DX: S16.1XXA Strain of muscle, fascia and tendon at neck level, initial encounter (principal); F17.210 Nicotine dependence, cigarettes, uncomplicated
CPT/HCPCS: 70450; 72125; 81003; 81025; 99284